=== PATIENT | female | born 1980 | race Caucasian/White ===

== ENCOUNTER 2018-01-29 15:22 | Emergency (ER) | payer OTHER ==
[~2018-01-29] VITALS: Ht 162.6 cm; Wt 88.5 kg
[2018-01-29 15:29] VITALS: BP 141/97
[2018-01-29] MEDS ORDERED: AUGMENTIN 875-1 EACH PO (15:59)
== END 2018-01-29 16:20 | disposition home or self-care (01) ==
LOC: M.ERS 15:22
DX: S61.412A Laceration without foreign body of left hand, initial encounter (principal); L08.9 Local infection of the skin and subcutaneous tissue, unspecified; J45.909 Unspecified asthma, uncomplicated; F17.210 Nicotine dependence, cigarettes, uncomplicated; X58.XXXA Exposure to other specified factors, initial encounter; Y93.89 Activity, other specified; Y92.89 Other specified places as the place of occurrence of the external cause; Y99.8 Other external cause status

== ENCOUNTER 2018-02-01 08:43 | Emergency (ER) | payer OTHER ==
[~2018-02-01] VITALS: Ht 162.6 cm; Wt 86.6 kg
[~2018-02-01 08:43] MED LIST: AUGMENTIN 875-1 EACH PO
[2018-02-01 09:33] VITALS: BP 141/86
== END 2018-02-01 09:35 | disposition home or self-care (01) ==
LOC: M.ERS 08:43
DX: S61.411D Laceration without foreign body of right hand, subsequent encounter (principal); X58.XXXD Exposure to other specified factors, subsequent encounter; J45.909 Unspecified asthma, uncomplicated; F17.210 Nicotine dependence, cigarettes, uncomplicated

== ENCOUNTER → 2018-02-13 | Emergency (ER) | payer OTHER ==
[~2018-02-13] VITALS: Ht 162.6 cm; Wt 88.5 kg
[2018-02-13 17:04] VITALS: BP 130/84
== END ==
LOC: M.ERS 16:24
DX: G89.18 Other acute postprocedural pain (principal); M79.641 Pain in right hand; F17.210 Nicotine dependence, cigarettes, uncomplicated; J45.909 Unspecified asthma, uncomplicated

== ENCOUNTER 2018-11-10 10:51 | Emergency (ER) | payer OTHER ==
[~2018-11-10] VITALS: Ht 162.6 cm; Wt 83.0 kg
[2018-11-10] MEDS ORDERED: ALBUTEROL2.5 MG/31 INH ×2 (11:03→11:18)
[2018-11-10] MEDS ORDERED: ZYRTEC10 M5 PO (11:03)
[2018-11-10] MEDS ORDERED: PULMICORT0.5 MG/22 INH (11:17)
[2018-11-10] MEDS ORDERED: VENTOLIN HFA 1818 GM INH (11:18)
[2018-11-10] MEDS ORDERED: MEDROLDOSEPACK PO (11:18)
[2018-11-10 11:59] VITALS: BP 141/83
== END 2018-11-10 11:59 | disposition home or self-care (01) ==
LOC: M.ERS 10:51
DX: J45.901 Unspecified asthma with (acute) exacerbation (principal); J20.9 Acute bronchitis, unspecified; J21.9 Acute bronchiolitis, unspecified; F17.210 Nicotine dependence, cigarettes, uncomplicated

== ENCOUNTER 2018-11-16 14:58 | Emergency (ER) | payer OTHER ==
[~2018-11-16] VITALS: Ht 162.6 cm; Wt 81.7 kg
[~2018-11-16 14:58] MED LIST changes: +ALBUTEROL2.5 MG/31 INH; +MEDROLDOSEPACK PO; +PULMICORT0.5 MG/22 INH; +VENTOLIN HFA 1818 GM INH; +ZYRTEC10 M5 PO
[2018-11-16] MEDS ORDERED: DIPHENHIST50 MG PO (16:49)
[2018-11-16] MEDS ORDERED: PREDNISONE 10 M10 MG PO (16:49)
[2018-11-16 16:50] LABS: URINE BILIRUBIN NEGATIVE (Negative); URINE BLOOD NEGATIVE (Negative); URINE CLARITY CLEAR; URINE COLOR YELLOW; URINE GLUCOSE-RANDOM NEGATIVE (Negative); URINE KETONES NEGATIVE (Negative); URINE LEUKOCYTES-REFLEX NEGATIVE (Negative); URINE NITRITE-REFLEX NEGATIVE (Negative); URINE PROTEIN TRACE (Negative)
[2018-11-16] MEDS ORDERED: PYRIDIUM100 M1 PO (17:30)
[2018-11-16 17:40] VITALS: BP 130/70
== END 2018-11-16 17:40 | disposition home or self-care (01) ==
LOC: M.ERS 14:58
PROVIDERS: Nurse Practitioner Family
DX: J45.901 Unspecified asthma with (acute) exacerbation (principal); T78.40XA Allergy, unspecified, initial encounter; R30.0 Dysuria; F17.210 Nicotine dependence, cigarettes, uncomplicated; X58.XXXA Exposure to other specified factors, initial encounter

== ENCOUNTER 2019-03-14 07:26 | Emergency (ER) | payer OTHER ==
[~2019-03-14] VITALS: Ht 162.6 cm; Wt 88.5 kg
[~2019-03-14 07:26] MED LIST changes: +DIPHENHIST50 MG PO; +PREDNISONE 10 M10 MG PO; +PYRIDIUM100 M1 PO
[2019-03-14 07:54] LABS: ABSOLUTE EOSINOPHILS 0.1 thou/uL (0.0-0.7); ABSOLUTE LYMPHOCYTES 3.1 thou/uL (0.8-5.3); ABSOLUTE MONOCYTES 0.4 thou/uL (0.0-1.2); ABSOLUTE NEUTROPHILS 5.1 thou/uL (1.6-8.1); BASOPHILS 0.4 %; EOSINOPHILS 0.6 %; HEMATOCRIT 38.2 % (37.0-47.0); HEMOGLOBIN 12.9 gm/dL (12.0-15.0); LYMPHOCYTES 35.6 %; MCH 31.1 pg (26.0-34.0); MCHC 33.8 g/dL (28.0-37.0); MCV 91.9 fL (80.0-100.0); MONOCYTES 4.7 %; MPV 7.4 fl. (7.2-11.1); NUCLEATED RBCS 0 /100WBC; PLATELET COUNT* 348 thou/uL (150-400); POLYS 58.7 %; RBC 4.15 mil/uL (4.20-5.00); RDW-CV 12.3 % (10.5-14.5); WBC 8.8 thou/uL (4.0-11.0)
[2019-03-14] MEDS ORDERED: NORCO 5-325 TA1 EAC1 PO (09:03)
[2019-03-14] MEDS ORDERED: PREDNISONE50 MG PO (09:03)
[2019-03-14] MEDS ORDERED: VENTOLIN HFA 1818 GM INH (09:10)
[2019-03-14 09:22] VITALS: BP 127/87
--- NOTE | 2019-03-14 16:58 | EKG ---
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
== END 2019-03-14 09:24 | disposition home or self-care (01) ==
LOC: M.ERS 07:26
PROVIDERS: Emergency Medicine Emergency Medical Services
DX: J45.909 Unspecified asthma, uncomplicated (principal); J00 Acute nasopharyngitis [common cold]; F17.210 Nicotine dependence, cigarettes, uncomplicated

== ENCOUNTER 2019-09-04 09:20 | Emergency (ER) | payer OTHER ==
[~2019-09-04] VITALS: Ht 162.6 cm; Wt 86.2 kg
[~2019-09-04 09:20] MED LIST changes: +NORCO 5-325 TA1 EAC1 PO; +PREDNISONE50 MG PO
[2019-09-04] MEDS ORDERED: DOXYCYCLINE 10100 MG PO (11:04)
[2019-09-04 11:14] VITALS: BP 123/80
--- NOTE | 2019-09-05 15:08 | PATH ---
[address] [address] PATHOLOGY RPT PROCEDURE Name: MELO SINGH Room: [facility] ENRIQUE Lynn#: [id number] Admission: 09/04/19 Date of : 78 Discharge: 09/04/19 Report #: [id number] Path Case #: [id number] [facility] Accession Number: [id number] . 01 Material submitted: . arm - LEFT MID LATERAL ARM, TICK WITH INDURATION AND CELLULITIS. Modifiers: left, mid, lateral . 01 Clinical history: . Tick bite with induration and cellulitis . 02 Diagnosis: Left (mid) lateral arm: - Benign skin with prominent non-specific acute inflammation. See comment. LBQ 09/05/2019 1240 Local . 02 Comment: No arthropod parts are identified. (KAVITA/db; 09/05/2019) . 02 Electronically signed: . Cash Poe MD, Pathologist NPI- [id number] . 01 Gross description: . The specimen is received in formalin, labeled "Melo Singh, L arm" and "L mid lateral arm" per requisition. Received is an elliptical segment of pink-szymanski skin measuring 1.1 x 0.6 x 0.2 cm displaying a central area of possible ulceration measuring 0.3 x 0.3 cm. The margin is inked black. It is serially sectioned and entirely submitted in A1. (SDY; 09/04/2019) SYU/SYU 09/05/2019 1238 Local . 02 Pathologist provided ICD-10: L08.9 . 02 CPT . 021967 Specimen Comment: A courtesy copy of this report has been sent to [phone] Specimen Comment: Report sent to Performed at: [address], [place], [place] [id number] MD Cecilio Tam MD Phone: [phone] Performed at: [facility] [address] [place], [place] [id number] [address] [address] PATHOLOGY RPT PROCEDURE Name: [facility]ELO SINGH [id number] Admission: 09/04/19 Date of : 78 Discharge: 09/04/19 Report #: [id number] Path Case #: [id number] MD Cash Poe MD Phone: [phone]
== END 2019-09-04 11:15 | disposition home or self-care (01) ==
LOC: M.ERS 09:20
PROVIDERS: Personal Emergency Response Attendant
DX: S40.862A Insect bite (nonvenomous) of left upper arm, initial encounter (principal); L03.114 Cellulitis of left upper limb; J45.909 Unspecified asthma, uncomplicated; F17.210 Nicotine dependence, cigarettes, uncomplicated; W57.XXXA Bitten or stung by nonvenomous insect and other nonvenomous arthropods, initial encounter; Y93.89 Activity, other specified; Y92.89 Other specified places as the place of occurrence of the external cause; Y99.8 Other external cause status

== ENCOUNTER 2019-09-14 21:10 | Emergency (ER) | payer OTHER ==
[~2019-09-14] VITALS: Ht 162.6 cm; Wt 86.2 kg
[~2019-09-14 21:10] MED LIST changes: +DOXYCYCLINE 10100 MG PO
[2019-09-14 22:03] VITALS: BP 124/80
== END 2019-09-14 22:04 | disposition home or self-care (01) ==
LOC: M.ERS 21:10
DX: Z48.01 Encounter for change or removal of surgical wound dressing (principal); J45.909 Unspecified asthma, uncomplicated; F17.210 Nicotine dependence, cigarettes, uncomplicated

== ENCOUNTER 2020-03-25 16:55 | Emergency (ER) | payer OTHER ==
[~2020-03-25] VITALS: Ht 162.6 cm; Wt 83.9 kg
[2020-03-25 17:00] VITALS: BP 109/84
[2020-03-25] MEDS ORDERED: IBUPROFEN 800800 M1 PO (17:35)
[2020-03-25] MEDS ORDERED: MEDROLDOSEPACK PO (17:35)
[2020-03-25] MEDS ORDERED: NORCO 5-325 TA1 EAC2 PO (17:35)
== END 2020-03-25 17:44 | disposition home or self-care (01) ==
LOC: M.ERS 16:55
DX: M54.42 Lumbago with sciatica, left side (principal); J45.909 Unspecified asthma, uncomplicated; F17.210 Nicotine dependence, cigarettes, uncomplicated

== ENCOUNTER 2020-05-23 17:17 | Emergency (ER) | payer BC ==
[~2020-05-23] VITALS: Ht 162.6 cm; Wt 86.2 kg
[~2020-05-23 17:17] MED LIST changes: +IBUPROFEN 800800 M1 PO; +NORCO 5-325 TA1 EAC2 PO
[2020-05-23] MEDS ORDERED: PREDNISONE 20 M20 MG PO (17:54)
[2020-05-23] MEDS ORDERED: ALBUTEROL2.5 MG/31 INH (17:54)
[2020-05-23] MEDS ORDERED: PROAIR HFA8.5 GM INH (17:54)
[2020-05-23] MEDS ORDERED: PULMICORT0.5 MG/22 INH (17:54)
[2020-05-23 17:55] VITALS: BP 150/90
== END 2020-05-23 17:55 | disposition home or self-care (01) ==
LOC: M.ERS 17:17
DX: J45.909 Unspecified asthma, uncomplicated (principal); Z76.0 Encounter for issue of repeat prescription; F17.210 Nicotine dependence, cigarettes, uncomplicated